=== PATIENT | male | born 1950 | race Caucasian/White ===

== ENCOUNTER 2021-03-27 19:30 | Emergency (ER) | payer MEDICARE ==
[~2021-03-27] VITALS: Ht 175.3 cm; Wt 93.0 kg
[~2021-03-27 19:30] MED LIST: ATORVASTATIN CA10 MG PO; LOSARTAN POTAS100 MG PO; METOPROLOL TART25 MG PO
[2021-03-27] MEDS ORDERED: AZITHROMYCIN250 MG PO (20:47)
[2021-03-27] MEDS ORDERED: PREDNISONE20 MG PO (20:47)
[2021-03-27] MEDS ORDERED: VENTOLIN HFA18 GM INH (20:47)
[2021-03-27 20:50] VITALS: BP 132/81
== END 2021-03-27 20:50 | disposition home or self-care (01) ==
LOC: FSED 20:04
DX: R05 Cough (principal); J40 Bronchitis, not specified as acute or chronic; I10 Essential (primary) hypertension; E78.5 Hyperlipidemia, unspecified; I48.91 Unspecified atrial fibrillation; Z85.53 Personal history of malignant neoplasm of renal pelvis
CPT/HCPCS: 71046; 83518; 87400; 99283

== ENCOUNTER 2021-12-08 13:42 | Emergency (ER) | payer MEDICARE ==
[~2021-12-08] VITALS: Ht 175.3 cm; Wt 94.8 kg
[~2021-12-08 13:42] MED LIST changes: +AZITHROMYCIN250 MG PO; +PREDNISONE20 MG PO; +VENTOLIN HFA18 GM INH
[2021-12-08] MEDS ORDERED: CEFTRIAXONE 1 GM VIAL IM ONE (14:00)
[2021-12-08] MEDS ORDERED: DEXAMETHASONE SOD PHOS INJ 4 MG/ML SDV IM ONE (14:00)
[2021-12-08] MEDS ORDERED: CEFDINIR300 MG PO (14:21)
[2021-12-08] MEDS ORDERED: PREDNISONE20 MG PO (14:21)
[2021-12-08] MEDS ORDERED: DEXAMETHASONE SOD PHOS INJ 4 MG/ML SDV ONE (14:22)
[2021-12-08] MEDS ORDERED: LIDOCAINE HCL 1% LOCAL INJ 20 ML VIAL ONE (14:22)
== END 2021-12-08 15:00 | disposition home or self-care (01) ==
LOC: FSED 14:00
DX: J20.9 Acute bronchitis, unspecified (principal); J01.90 Acute sinusitis, unspecified; I10 Essential (primary) hypertension; I48.91 Unspecified atrial fibrillation; E78.5 Hyperlipidemia, unspecified; Z79.899 Other long term (current) drug therapy
CPT/HCPCS: 87400; 99282; J0696; J1100; J2001

== ENCOUNTER 2021-12-17 12:42 | Emergency (ER) | payer MEDICARE ==
[~2021-12-17] VITALS: Ht 180.3 cm; Wt 90.7 kg
[~2021-12-17 12:42] MED LIST changes: +CEFDINIR300 MG PO
[2021-12-17] MEDS ORDERED: FLONASE ALLERG9.9 ML INH (13:13)
[2021-12-17] MEDS ORDERED: PROVENTIL HFA6.7 GM INH (13:13)
[2021-12-17] MEDS ORDERED: MONTELUKAST SOD10 MG PO (13:13)
== END 2021-12-17 13:15 | disposition home or self-care (01) ==
LOC: FSED 12:46
DX: R05.9 Cough, unspecified (principal); J40 Bronchitis, not specified as acute or chronic; J30.9 Allergic rhinitis, unspecified; I10 Essential (primary) hypertension; E78.5 Hyperlipidemia, unspecified; I48.91 Unspecified atrial fibrillation; Z85.53 Personal history of malignant neoplasm of renal pelvis; Z94.84 Stem cells transplant status
CPT/HCPCS: 99282

== ENCOUNTER 2022-12-21 13:01 | Outpatient (RCR) | payer MEDICARE ==
[~2022-12-21 13:01] MED LIST changes: +BROMPHENIR-PSE118 ML PO; +FLONASE ALLERG9.9 ML INH; +MONTELUKAST SOD10 MG PO; +PROVENTIL HFA6.7 GM INH
== END 2023-01-08 ==
LOC: OT 13:01
PROVIDERS: ATTEND Specialist
DX: M75.102 Unspecified rotator cuff tear or rupture of left shoulder, not specified as traumatic (principal)

== ENCOUNTER 2023-01-25 11:00 | Outpatient (RCR) | payer MEDICARE | END 2023-02-08 | LOC: OT 11:00 | PROVIDERS: ATTEND Specialist | DX: M75.102 Unspecified rotator cuff tear or rupture of left shoulder, not specified as traumatic (principal) ==

== ENCOUNTER 2024-05-17 10:26 | Emergency (ER) | payer MEDICARE ==
[~2024-05-17] VITALS: Ht 170.2 cm; Wt 89.5 kg
[2024-05-17 10:38] VITALS: PULSE 67; RESP 18; TEMP 97.2; O2SAT 95
[2024-05-17] MEDS ORDERED: DOXYCYCLINE HY100 MG PO (10:49)
[2024-05-17] MEDS ORDERED: LYRICA150 MG PO (11:49)
[2024-05-17] MEDS ORDERED: STOOL SOFTENER50 MG (11:49)
[2024-05-17] MEDS ORDERED: ACYCLOVIR200 MG PO (11:49)
[2024-05-17] MEDS ORDERED: ELIQUIS2.5 MG PO (11:49)
[2024-05-17] MEDS ORDERED: IBUPROFEN800 MG PO (11:49)
[2024-05-17] MEDS ORDERED: DEXAMETHASONE4 MG PO (11:49)
[2024-05-17] MEDS ORDERED: ONE DAILY WITH1 EACH (11:49)
[2024-05-17] MEDS ORDERED: PROTONIX20 MG PO (11:49)
[2024-05-17] MEDS ORDERED: LOSARTAN-HCTZ1 EAC2 (11:49)
[2024-05-17] MEDS ORDERED: TYLENOL325 MG PO (11:49)
[2024-05-17] MEDS ORDERED: ONDANSETRON ODT4 MG PO (11:49)
[2024-05-17] MEDS ORDERED: SIMBRINZA 1%-0.28 M1 (11:49)
[2024-05-17] MEDS ORDERED: POMALYST2 MG (11:49)
== END 2024-05-17 11:21 | disposition home or self-care (01) ==
LOC: FSED 10:30
DX: R05.9 Cough, unspecified (principal); J06.9 Acute upper respiratory infection, unspecified; J32.9 Chronic sinusitis, unspecified; I10 Essential (primary) hypertension; E78.5 Hyperlipidemia, unspecified; I48.91 Unspecified atrial fibrillation; Z11.52 Encounter for screening for COVID-19; Z85.53 Personal history of malignant neoplasm of renal pelvis
CPT/HCPCS: 0223U; 71046; 87400; 99283